=== PATIENT | female | born 2005 | race Caucasian/White ===

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

== ENCOUNTER 2025-05-22 18:46 | Emergency (ER) | payer MEDICAID, SELFPAY ==
--- NOTE | 2025-05-22 18:48 | XRR_ITS ---
PROCEDURE INFORMATION: Exam: XR Chest Exam date and time: 05/22/2025 7:02 PM Age: 20 years old Clinical indication: Shortness of breath; Additional info: SOB TECHNIQUE: Imaging protocol: Radiologic exam of the chest. Views: 1 view. COMPARISON: CT abdomen pelvis w con* [id number] 08/05/2023 8:24 AM FINDINGS: Lungs: Unremarkable. No consolidation. Pleural spaces: Unremarkable. No pleural effusion. No pneumothorax. Heart/Mediastinum: Unremarkable. No cardiomegaly. Bones/joints: Unremarkable. XR/XR chest 1V portable [id number] IMPRESSION: No acute findings.
--- NOTE | 2025-05-22 18:48 | ECG_ITS ---
[facility] 2025-05[facility]22 Pat Name: Maeve Ceja Department: Room: Gender: Female Knot Picker Cloth: : 2005 Requested By: Melany Farr Order Number: [id number] Mackenzie MD: Evan Hammond M.D. Measurements Intervals [place] Rate: 79 P: 63 FL: 154 QRS: 30 QRSD: 90 T: 42 QT: 364 QTc: 420 Interpretive Statements SINUS RHYTHM NONSPECIFIC T-WAVE ABNORMALITY No previous ECG available for comparison Electronically Signed On 05-23-2025 17:24:59 FASHION MERCHANDISER by Evan Hammond M.D. [email or web address]
[2025-05-22 18:54] VITALS: BP 138/89; PULSE 90; RESP 16; TEMP 36.6; O2SAT 100; BMI 20.5
--- OUTSIDE RECORDS SUMMARY | 2025-05-22 18:56 | XMS_ITS | Encounter Summary ---
Author Organization [facility] Address [address] [place] [address] Care Team Providers Care Budget Assistant Name Role Phone Phong Cui MD Primary Care Provider [phone] Encounter Details Date Type Department Care Team (Latest Contact Info) Description 03/22/2025 Results Follow-Up [facility] Family Medicine [address] [address] Monet Kidd, [facility] [address] [address] POC RAPID STREP A ANTIGEN, POC INFLUENZA A/B AND COVID-19 ANTIGENS, MONONUCLEOSIS SCREEN, Additional followed-up results: 6 Social History Tobacco Use Types Packs/Day Years Used Date Smoking Tobacco: Never Passive Smoke Exposure: Yes Smokeless Tobacco: Never Alcohol Use Standard Drinks/Week Comments No 0 (1 standard drink = 0.6 oz pur e alcohol) Feeling Safe Answer Date Recorded Are you in a relationship wi th someone who hurts you emotionally and/or physically? No 12/13/2024 Comments No Sex and Gender Information Value Date Recorded Sex Assigned at Not on file Legal Sex Female 11:25 AM ENVIRONMENTAL ENGINEER Gender Identity Not on file Sexual Orientation Not on file documented as of this encounter Plan of Treatment Upcoming Encounters Date Type Department Care Team (Late st Contact Info) Description 11/19/2025 2:10 PM CDT Office Visit [facility] [address] [place] [address] Gloria Cruz PA [address] [place] [id number] 12/26/2025 2:30 PM CDT Office Visit [facility] [address] [address] [place] [address] Myah Samuel, TELETYPESETTER [address] [place] [address] 2026 3:00 PM CDT Office Visit [facility] [address] [place] [address] Los Del Rio MD [address] [place] [address] Meseret Curry FNP [address] [place] [address] documented as of this encounter Visit Diagnoses Not on filedocumented in this encounter Additional Health Concerns Assessment Noted Time PHQ-9 Depression Total Score: 1 07/25/19 25 4:15 PM ENVIRONMENTAL ENGINEER documented as of this encounter Care Teams Budget Assistant Relationship Specialty Start Date End Date Phong Ciu MD [address] [address] PCP - General Family Practice 06/08/17 documented as of this encounter
--- OUTSIDE RECORDS SUMMARY | 2025-05-22 18:56 | XMS_ITS | Clinical Summary ---
[facility] Organization [facility] Address [address] [place]o: [place] [address] Care Team Providers Care Residence Hall Director Name Role Phone Phong Cui MD Primary Care Provider [phone] Allergies Active Allergy Reactions Criticality Noted Date Comments Alpha-Gal (Qzzdunxgw-Pgnup-3,3-Galactose) Angioedema High 08/31/2023 Azithromycin Rash Low 07/09/2012 Gelatin Capsules (Empty) Unknown 06/28/2024 Milk Itching Low 09/05/2024 Shellfish Containing Products Itching Low 2024 Medications diazePAM (VALIUM) 5 mg tablet Take 5 mg by mouth Continuous as needed for Anxiety. Active albuterol sulfate HFA 90 mcg/actuation aerosol inhalerIndicatio ns:Upper respiratory tract infection, unspecified type Take 2 Puffs by inhalation every 6 hours as needed for Shortness of Breath. 8.5 Gram 1 024 Active cetirizine (ZyrTEC) 10 mg tabletIndication s:Post-nasal drainage Take 1 Tablet (10 mg) by mouth daily. 90 Tablet 024 Active Norethindrn A-E estradiol-Iron (Junel 24) 1 mg-20 mcg (24)/75 mg (4) tabletIndication s:Encounter for counseling regarding contraception Take 1 Tablet by mouth daily. 28 Tablet Active Additional Information Patient not taking.Reported on 05/03/2025 EPINEPHrine (EPIPEN) 0.3 mg/0.3 mL Auto-InjectorInd ications:Allergy to alpha-gal Inject 0.3 mL (0.3 mg) by intramuscular injection 1 time daily as needed for Anaphylaxis. 1 Each 1 Active predniSONE (DELTASONE) 5 mg tablet 50 mg x 2 days 40 mg x 2 days 30 mg x 2 days 20 mg x 2 days 10 mg x 2 days 5 mg x 2 days 62 Tablet 025 Active Additional Information Patient not taking.Reported on 05/03/2025 azelastine (ASTELIN) 137 mcg/actuation nasal sprayIndications :Allergy to alpha-gal,Chroni c rhinitis Administer 2 Sprays in each nostril 2 times daily. 30 mL 1 025 Active montelukast (Singulair) 10 mg tabletIndication s:Allergy to alpha-gal,Chroni c rhinitis Take 1 Tablet (10 mg) by mouth daily at bedtime. 30 Tablet 1 025 Active oxyBUTYnin (DITROPAN XL) 10 mg Extended Release 24 hour tablet Take 1 Tablet (10 mg) by mouth daily. 90 Tablet 3 025 Active hydrOXYzine HCL (ATARAX) 10 mg tablet Take 2 Tablets (20 mg) by mouth daily at bedtime. 60 Tablet 11 025 Active EluRyng 0.12-0.015 mg/24 hr Ring INSERT 1 RING VAGINALLY ONCE A MONTH 025 Active loratadine (CLARITIN) 10 mg tabletIndication s:Allergy to alpha-gal,Chroni c rhinitis Take 1 Tablet (10 mg) by mouth daily. 100 Tablet 2 025 Active famotidine (PEPCID) 40 mg tabletIndication s:Allergy to alpha-gal Take 1 tablet by mouth twice daily 200 Tablet 2 025 Active Zafemy 150-35 mcg/24 hr Patch Weekly PATCH APPLY 1 PATCH TOPICALLY ONCE A WEEK FOR 3 WEEKS OF A 4-WEEK CYCLE Active cyclobenzaprine (FLEXERIL) 5 mg TabletIndication s:Chronic neck pain Take 1 Tablet (5 mg) by mouth 3 times daily as needed for Spasm. 30 Tablet 1 025 Active ferrous sulfate 325 mg (65 mg iron) tabletIndication s:Iron deficiency anemia secondary to inadequate dietary iron intake Take 1 Tablet (325 mg) by mouth daily. 90 Tablet 3 025 Active ferrous sulfate 325 mg (65 mg iron) tablet Take 325 mg by mouth every other day. 2024 Discontinued Active Problems Problem Noted Date Diagnosed Date Interstitial cystitis 05/09/2025 Dysautonomia 03/20/2025 Orthostatic hypotension 01/09/2025 Alpha-gal syndrome 01/09/2025 Environmental tobacco smoke exposure 07/07/2015 Psoriasis 02/21/2014 Encounters Date Type Department Care Team Description 05/06/2025 Results Follow-Up [address] [phone] PatriciaDiamond, CONTACT CENTER ASSOCIATE IRON, TIBC, AND PERCENT SATURATION, VITAMIN B12 LEVEL, VITAMIN D 25 HYDROXY, XR CERVICAL SPINE 2 OR 3 VIEWS 05/03/2025 1:56 PM SPEECH PROFESSOR - 05/03/2025 11:59 PM SPEECH PROFESSOR Hospital Encounter [facility] [address] [address] PatriciaDiamond, CONTACT CENTER ASSOCIATE Discharge Disposition: Home or Self Care 05/03/2025 11:40 AM SPEECH PROFESSOR Office Visit [address] [phone] PatriciaDiamond, CONTACT CENTER ASSOCIATE Chronic neck pain (Primary Dx); Post-nasal drainage; Allergy to alpha-gal; Other fatigue; Vitamin D deficiency; Allergic reaction, sequela; Food allergy 04/30/2025 External Device Data ST[facility] ABSTRACTION Provider, Abstract 04/24/2025 External Device Data [facility] ABSTRACTION Provider, Abstract 04/24/2025 External Device Data [facility] ABSTRACTION Provider, Abstract 04/17/2025 External Device Data [place] ABSTRACTION Provider, Abstract 04/16/2025 External Device Data [place] ABSTRACTION Provider, Abstract 03/25/[address] [phone] Monet Kidd FNP Allergy to alpha-gal 03/22/2025 Results Follow-Up [address] [address] Monet Kidd FNP POC RAPID STREP A ANTIGEN, POC INFLUENZA A/B AND COVID-19 ANTIGENS, MONONUCLEOSIS SCREEN, Additional followed-up results: 6 03/21/[address] [place] [address] Phong Cui MD Results 03/21/[address] [place] [address] Phong Cui MD Patient Communication 03/20/2025 9:40 AM CDT Office Visit [address] [place] [address] Monet Kidd FNP Allergy to alpha-gal (Primary Dx); Food allergy; Dysautonomia (CMS/HCC); Myalgia; Other fatigue; Sore throat; Fever, unspecified fever cause; Viral upper respiratory tract infection 03/13/2025 External Device Data STL ABSTRACTION Provider, Abstract 03/12/2025 External Device Data ST[place] ABSTRACTION Provider, Abstract 02/27/[address] [address] Monet Kidd FNP Allergy to alpha-gal; Chronic rhinitis 02/27/[address] [place] [address] Monet Kidd FNP Allergy to alpha-gal; Chronic rhinitis 02/26/2025 External Device Data STL ABSTRACTION Provider, Abstract from Last 3 Months Family History Medical History Relation Name Comments Healthy Father Kidney Disease Maternal Grandmother Healthy Mother Lung Cancer Paternal Grandfather Relation Name Status Comments Father Alive Maternal Grandmother Mother Alive Paternal Grandfather Social History Tobacco Use Types Packs/Day Years Used Date Smoking Tobacco: Never Passive Smoke Exposure: Yes Smokeless Tobacco: Never Tobacco Cessation:Counseling Given: No Alcohol Use Standard Drinks/Week Comments No 0 (1 standard drink = 0.6 oz pur e alcohol) Feeling Safe Answer Date Recorded Are you in a relationship wi th someone who hurts you emotionally and/or physically? No 12/13/2024 Comments No Sex and Gender Information Value Date Recorded Sex Assigned at Not on file Legal Sex Female 11:25 AM SPEECH PROFESSOR Gender Identity Not on file Sexual Orientation Not on file Last Filed Vital Signs Vital Sign Reading Time Taken Comments Blood Pressure 102/70 05/03/2025 11:43 AM SPEECH PROFESSOR Pulse 86 05/03/2025 11:43 AM SPEECH PROFESSOR Temperature 36.7 C (98 F) 05/03/2025 11:43 AM SPEECH PROFESSOR Respiratory Rate 18 05/03/2025 11:43 AM SPEECH PROFESSOR Oxygen Saturation 100% 05/03/2025 11:43 AM SPEECH PROFESSOR Inhaled Oxygen Concentration - - Weight 51.5 kg (113 lb 9.6 oz) 05/03/2025 11:43 AM SPEECH PROFESSOR Height 160 cm (5' 3 ) 05/03/2025 11:43 AM SPEECH PROFESSOR Body Mass Index 20.12 05/03/2025 11:43 AM SPEECH PROFESSOR Plan of Treatment Upcoming Encounters Date Type Department Care Team (Late st Contact Info) Description 11/19/2025 2:10 PM CDT Office Visit [facility] [address] [place] [phone] Gloria Cruz PA [address] [place] [address] 12/26/2025 2:30 PM CDT Office Visit [facility] [place] [address] [place] [address] Myah Samuel FNP [address] [place] [address] 2026 3:00 PM CDT Office Visit [facility] [address] [place] [address] [place] MD [address] [place] [address] Meseret Curry, CONTACT CENTER ASSOCIATE [address] [place] [address] Health Maintenance Due Date Last Done Comments HPV VACCINES (1 - 3-dose series) 02/12/2020 DTAP/TDAP/TD VACCINES (1 - Tdap) 02/12/2024 HEPATITIS B VACCINES (1 of 3 - 19+ 3-dose series) 02/12/2024 Preventative Visit-Managed Medicaid 02/12/2024 CHLAMYDIA SCREENING (ANNUAL) 11-24 YEARS 11/10/2024 11/11/2023, 08/02/2023 INFLUENZA VACCINE (#1) 2025 05/15/2024, 2022 Procedures Procedure Name Priority Date/Time Associated Diagnosis Comments XR CERVICAL SPINE 2 OR 3 VIEWS Routine 05/03/2025 2:15 PM SPEECH PROFESSOR Chronic neck pain VITAMIN D 25 HYDROXY Routine 05/03/2025 12:05 PM SPEECH PROFESSOR Post-nasal drainage Chronic neck pain Allergy to alpha-gal Other fatigue Vitamin D deficiency VITAMIN B12 LEVEL Routine 05/03/2025 12: 05 PM SPEECH PROFESSOR Post-nasal drainage Allergy to alpha-gal Other fatigue IRON, TIBC, AND PERCENT SATURATION Routine 05/03/2025 12:05 PM SPEECH PROFESSOR Post-nasal drainage Allergy to alpha-gal Other fatigue POC RAPID STREP A ANTIGEN Routine 03/20/2025 10:09 AM CDT Sore throat Fever, unspecified fever cause POC INFLUENZA A/B AND COVID-19 ANTIGENS Routine 03/20/2025 10:08 AM CDT Sore throat Fever, unspecified fever cause VITAMIN D 25 HYDROXY Routine 03/20/2025 9:53 AM CDT Myalgia Other fatigue IRON, TIBC, AND PERCENT SATURATION Routine 03/20/2025 9:53 AM CDT Myalgia Other fatigue MAGNESIUM LEVEL Routine 03/20/2025 9:53 AM CDT Myalgia COMPREHENSIVE METABOLIC PANEL Routine 03/20/2025 9:53 AM CDT Myalgia CBC WITH DIFFERENTIAL Routine 03/20/2025 9:53 AM CDT Myalgia Other fatigue ALLERGEN COCONUT, IGE Routine 03/20/2025 9:53 AM CDT Food allergy MONONUCLEOSIS SCREEN Routine 03/20/2025 9:53 AM CDT Sore throat Fever, unspecified fever cause VAGINOSIS/VAGINITIS PANEL PLUS Routine 11/11/2023 1:15 PM CDT Dysuria Vaginal discharge from Last 3 Months or Most Recently Relevant to Health Maintenance Results * XR CERVICAL SPINE 2 OR 3 VIEWS (05/03/2025 2:15 PM SPEECH PROFESSOR) Anatomical Region Laterality Modality Spine Computed Radiogr aphy 05/03/2025 2:15 PM SPEECH PROFESSOR Impressions 05/05/2025 9:29 AM SPEECH PROFESSOR IMPRESSION: See below. Exam: XR CERVICAL SPINE 2 OR 3 VIEWS Date/Time of Exam: 05/03/2025 2:15 PM Reason For Exam: See Diagnosis. Diagnosis: Chronic neck pain; Chronic neck pain. Findings: Mild reversal of cervical lordosis. Otherwise unremarkable exam. No fracture, bone lesion, or significant degenerative changes. Narrative Procedure Note Jake Gonzalez MD - 05/05/2025 IMPRESSION: See below. Exam: XR CERVICAL SPINE 2 OR 3 VIEWS Date/Time of Exam: 05/03/2025 2:15 PM Reason For Exam: See Diagnosis. Diagnosis: Chronic neck pain; Chronic neck pain. Findings: Mild reversal of cervical lordosis. Otherwise unremarkable exam. No fracture, bone lesion, or significant degenerative changes. [facility] DIAGNOSTIC IMAGING ORDER NALINI Final Result * (ABNORMAL) IRON, TIBC, AND PERCENT SATURATION (05/03/2025 12:05 PM SPEECH PROFESSOR) Only the most recent of2 resultswithin the time period is included. IRON 25(L) 40 - 190 mcg/dL [facility] TIBC 516(H) 250 - 450 mcg/dL (calc) [facility] IRON % SATURATION 5(L) 16 - 45 % (calc) [facility] Comment: Test Performed at: [facility] [address] [place] [address] Dilip Willson MD Blood 05/03/2025 12:0 5 PM SPEECH PROFESSOR 05/04/2025 3:34 AM SPEECH PROFESSOR Result [facility] CHEMISTRY ORDERABLES Fin al Result [facility] [phone] [facility] [address] [place] [address] * (ABNORMAL) VITAMIN D 25 HYDROXY (05/03/2025 12:05 PM SPEECH PROFESSOR) Only the most recent of2 resultswithin the time period is included. VITAMIN D, 25 OH, TOTAL 20(L) 30 - 100 ng/mL [facility] Comment: Vitamin D Status 25-OH Vitamin D: Deficiency: <20 ng/mL Insufficiency: 20 - 29 ng/mL Optimal: > or = 30 ng/mL For 25-OH Vitamin D testing on patients on D2-supplementation and patients for whom quantitation of D2 and D3 fractions is required, the [facility] 25-OH VIT D, (D2,D3), LC/MS/MS is recommended: order code [id number] (patients >2yrs). See Note 1 Note 1 For additional information, please refer to http://education.[employer]/faq/YBN448 (This link is being provided for informational/ educational purposes only.) Test Performed at: [email or web address] [address] [place] [address] Dilip Willson MD Blood 05/03/2025 12:0 5 PM SPEECH PROFESSOR 05/04/2025 3:34 AM SPEECH PROFESSOR Diamond Lacey BAGLEYP CHEMISTRY ORDERABLES Fin al Result Performing Organization Address City/[facility] de Phone Number [facility] [phone] [address] * VITAMIN B12 LEVEL (05/03/2025 12:05 PM SPEECH PROFESSOR) Pathologist [facility] VITAMIN B12 433 200 - 1100 pg/mL [facility] Comment: Test Performed at: [facility] [address] Dilip Willson MD Blood 05/03/2025 12:0 5 PM SPEECH PROFESSOR 05/04/2025 3:34 AM SPEECH PROFESSOR Diamond BAGLEYP CHEMISTRY ORDERABLES Fin al Result Performing Organization Address [facility] de Phone Number [facility] [phone] [address] * POC RAPID STREP A ANTIGEN (03/20/2025 10:09 AM CDT) RAPID STREP POC Negative Negative, Indeterminate [facility] INTERNAL KIT QC POC Pass Pass [facility] VIEW KIT LOT NUMBER POC [id number] [facility] KIT EXP DATE POC 10/20/2025 [facility] VIEW READ METHOD POC Visual [facility] Upper Respiratory SPECIMEN FROM THROAT / Unknown 03/20/2025 10:09 AM CDT Monet Kidd CONTACT CENTER ASSOCIATE POINT OF CARE TESTING Fi nal Result Performing Organization Address [facility] Co de Phone Number [facility] CLIA# [id number] [address] [facility] [address] [place] [address] * POC INFLUENZA A/B AND COVID-19 ANTIGENS (03/20/2025 10:08 AM CDT) INFLUENZA A AG POC Not Detected Not Detected [facility] INFLUENZA B AG POC Not Detected Not Detected [facility] COVID-19 ANTIGEN POC Presumptively Negative Presumptively Negative [facility] INTERNAL KIT QC POC Pass Pass [facility] KIT LOT NUMBER POC [id number] [facility] KIT EXP DATE POC 10/09/2025 [facility] Upper Respiratory 03/20/2025 10:08 AM CDT Monet Kidd CONTACT CENTER ASSOCIATE POINT OF CARE TESTING Fi nal Result Performing Organization Address [facility] Co de Phone Number [facility] CLIA# [id number] [address] [facility] [address] [facility] [address] [place] [address] * ALLERGEN COCONUT, IGE (03/20/2025 9:53 AM CDT) ALLERGEN COCONUT <0.10 kU/L [facility] ALLERGEN ALLERGEN COCONUT CLASS 0 [facility] ALLERGY PANEL INTERP [facility] Comment: Specific Level of Allergen IGE Class kU/L Specific IGE Antibody ----- --------- 0 <0.10 Absent/Undetectable 0/1 0.10-0.34 Very Low Level 1 0.35-0.69 Low Level 2 0.70-3.49 Moderate Level 3 3.50-17.4 High Level 4 17.5-49.9 Very High Level 5 50-100 Very High Level 6 >100 Very High Level The clinical relevance of allergen results of 0.10-0.34 kU/L are undetermined and intended for specialist use. Allergens denoted with a include results using one or more analyte specific reagents. In those cases, the test was developed and its analytical performance characteristics have been determined by [facility]. It has not been cleared or approved by the U.S. Food and Drug Administration. This assay has been validated pursuant to the CLIA regulations and is used for clinical purposes. Test Performed at: [facility] [address] [place] [address] Dilip Willson MD Blood 03/20/2025 9:53 AM CDT 03/21/2025 6:40 AM CDT Monet Kidd CONTACT CENTER ASSOCIATE CHEMISTRY ORDERABLES Fin al Result [facility] [phone] [facility] [address] [place] [address] * (ABNORMAL) CBC WITH DIFFERENTIAL (03/20/2025 9:53 AM CDT) WBC 4.7 3.8 - 10.8 Thousand/u L [facility] RBC 4.05 3.80 - 5.10 Million/uL [facility] HEMOGLOBIN 11.6(L) 11.7 - 15.5 g/dL [facility] HEMATOCRIT 38.1 35.0 - 45.0 % [facility] MCV 94.1 80.0 - 100.0 fL [facility] MCH 28.6 27.0 - 33.0 pg [facility] MCHC 30.4(L) 32.0 - 36.0 g/dL [facility] Comment: For adults, a slight decrease in the calculated MCHC value (in the range of 30 to 32 g/dL) is most likely not clinically significant; however, it should be interpreted with caution in correlation with other red cell parameters and the patient's clinical condition. RDW 13.1 11.0 - 15.0 % [facility] PLATELETS 299 140 - 400 Thousand/u L [facility] MPV 12.0 7.5 - 12.5 fL [facility] NEUTROPHIL ABSOLUTE 2,397 1,500 - 7,800 cells/uL [facility] LYMPHOCYTE ABSOLUTE 1,716 850 - 3,900 cells/uL [facility] MONOCYTE ABSOLUTE 381 200 - 950 cells/uL [facility] EOSINOPHIL ABSOLUTE 179 15 - 500 cells/uL [facility] BASOPHILS ABSOLUTE 28 0 - 200 cells/uL [facility] NEUTROPHIL 51 % [facility] LYMPHOCYTES 36.5 % [facility] MONOCYTE 8.1 % [facility] EOSINOPHILS 3.8 % [facility] BASOPHILS 0.6 % [facility] Comment: Test Performed at: [facility] [address] [place] [address] Dilip Willson MD Blood 03/20/2025 9:53 AM CDT 03/21/2025 6:40 AM CDT Monet BAGLEYP HEMATOLOGY ORDERABLES Fi nal Result Performing Organization Address City/[facility]/ZIP Co de Phone Number [facility] [phone] [facility] [address] [place] [address] * (ABNORMAL) MONONUCLEOSIS SCREEN (03/20/2025 9:53 AM CDT) MONONUCLEOSIS SCREEN POSITIVE( A) NEGATIVE [facility] Comment: Test Performed at: [facility] [address] [place] [phone] Dilip Willson MD Blood 03/20/2025 9:53 AM CDT 03/21/2025 6:40 AM CDT Monet Kidd [facility] HEMATOLOGY ORDERABLES Fi nal Result [facility] [phone] [facility] [address] [place] [address] * MAGNESIUM LEVEL (03/20/2025 9:53 AM CDT) [facility] MAGNESIUM 2.0 1.5 - 2.5 mg/dL [facility] Comment: Test Performed at: [facility] [address] [place] [address] Dilip Willson MD Blood 03/20/2025 9:53 AM CDT 03/21/2025 6:40 AM CDT Monet Kidd CONTACT CENTER ASSOCIATE CHEMISTRY ORDERABLES Fin al Result [facility] [phone] [facility] [address] * COMPREHENSIVE METABOLIC PANEL (03/20/2025 9:53 AM CDT) [facility] GLUCOSE 81 65 - 99 mg/dL [facility] Comment: Fasting reference interval BUN 12 7 - 25 mg/dL [facility] CREATININE 0.62 0.50 - 0.96 mg/dL [facility] GFR 131 > OR = 60 mL/min/1. 73m2 [facility] BUN/CREAT RATIO SEE NOTE: 6 22 (calc) [facility] Comment: Not Reported: BUN and Creatinine are within reference range. SODIUM 138 135 - 146 mmol/L [facility] POTASSIUM 4.0 3.5 - 5.3 mmol/L [facility] CHLORIDE 105 98 - 110 mmol/L [facility] CO2 26 20 - 32 mmol/L [facility] CALCIUM 9.8 8.6 - 10.2 mg/dL [facility] TOTAL PROTEIN 7.0 6.1 - 8.1 g/dL [facility] ALBUMIN 4.5 3.6 - 5.1 g/dL [facility] GLOBULIN 2.5 1.9 - 3.7 g/dL (calc) [facility] ALBUMIN/GLOBULIN RATIO 1.8 1.0 - 2.5 (calc) [facility] BILIRUBIN TOTAL 0.6 0.2 - 1.2 mg/dL [facility] ALKALINE PHOSPHATASE 55 31 - 125 U/L [facility] AST 22 10 - 30 U/L [facility] ALT 11 6 - 29 U/L [facility] Comment: Test Performed at: [email or web address] [address] [facility] [place] [address] Dilip Willson MD Blood 03/20/2025 9:53 AM CDT 03/21/2025 6:40 AM CDT Monet Kidd CONTACT CENTER ASSOCIATE CHEMISTRY ORDERABLES Fin al Result [facility] [phone] [facility] [address] [place] [address] * (ABNORMAL) VAGINOSIS/VAGINITIS PANEL PLUS (11/11/2023 1:15 PM CDT) [facility] BACTERIAL VAGINOSIS POSITIVE(A) NEGATIVE [facility] [place] ANTOINETTE SPECIES DETECTED(A) NOT DETECTED [facility] [place] ANTOINETTE GLABRATA NOT DETECTED NOT DETECTED [facility] [place] Comment: Antoinette species C. albicans, C. tropicalis, C. parapsilosis, and/or C. dubliniensis can be detected, but not differentiated, in the Antoinette spp. result. TRICHOMONAS VAGINALIS (TV), TMA NOT DETECTED NOT DETECTED [facility] [place] C TRAC RNA NOT DETECTED NOT DETECTED [facility] [place] N.GONORRHOEAE RNA, TMA NOT DETECTED NOT DETECTED [facility] [place] Comment: For additional information, please refer to https://education.[employer]/faq/DGP321 (This link is being provided for information/ educational purposes only.) Test Performed at: [email or web address] [address] [facility] [place] [address] Dilip Willson MD Genital SPECIMEN FROM VAGINA / Unknown 11/11/2023 1:15 PM CDT 11/12/2023 3:47 AM CDT Monet Tucker Marti CONTACT CENTER ASSOCIATE MICROBIOLOGY - GENERAL O RDERABLES Final Result Performing Organization Address City/State/[facility] Co de Phone Number [facility] [phone] [facility] [address] [place] [address] from Last 3 Months or Most Recently Relevant to Health Maintenance Insurance Care Teams Residence Hall Director Relationship Specialty Start Date End Date Phong Cui MD [address] [place] [phone] PCP - General Family Practice 06/08/17
--- NOTE | 2025-05-22 19:01 | W.ED.CHESTPA ---
HPI - Chest Pain General: Chief Complaint: Chest Pain Stated Complaint: chest is tight. hard to breathe, chilling/ flashes Time Seen by Provider: 05/22/25 18:55 Source: patient Mode of arrival: ambulatory Limitations: no limitations History of Present Illness: 20-year-old female states 45 minutes ago she started feeling tightness in her chest states she is having some shortness of breath. Said she is also having a mild headache along with tingling all over. Patient denies any worse or improving factors no history of any heart or lung disease denies any recent long travels. She denies any vomiting or diarrhea. Related Data Home Medications ?Medication ?Instructions ?Recorded ?Confirmed triamcinolone acetonide 0.5 % 1 applic topical DAILY 04/25/23 05/06/25 topical cream cetirizine 10 mg tablet (Zyrtec) 10 mg PO DAILY 07/20/24 05/06/25 hydroxyzine HCl 10 mg tablet 10 mg PO DAILY 07/20/24 05/06/25 epinephrine 0.3 mg/0.3 mL See Rx Instructions .Route .COMPLEX 11/15/24 05/06/25 injection, auto-injector famotidine 20 mg tablet 20 mg PO BID 11/15/24 05/06/25 oxybutynin chloride 5 mg 10 mg PO DAILY 01/02/25 05/06/25 tablet,extended release 24 hr azelastine 137 mcg (0.1 %) nasal 2 spray intranasal BID 04/02/25 05/06/25 spray montelukast 10 mg tablet 10 mg PO DAILY 04/02/25 05/06/25 Previous Rx's ?Medication ?Instructions ?Recorded diazepam 5 mg tablet (Valium) 5 mg PO DAILY PRN severe anxiety 07/20/24 #30 tabs norelgestromin 150 mcg-e.estradiol 1 patch transdermal Q7D #12 ea 04/25/25 35 mcg/24 hr weekly transderm patch (Xulane) Allergies Allergy/AdvReac Type Severity Reaction Status Date / Time Milk Containing Products Allergy Severe ALGY-Anaphy Verified 05/06/25 10:28 (Dairy) laxis shellfish derived Allergy Unknown Unknown Verified 05/06/25 10:28 Alpha-Gal Allergy ALGY-Difficulty Verified 05/06/25 10:28 (Dcporeqjp-Rhrzv-7,3-Gala Breathing azithromycin (From Zithromax) AdvReac Mild hives Verified 05/06/25 10:28 PFSH ED PFSH: Medical History Dysautonomia Suspected POTS but still undergoing testing Major depressive disorder, recurrent, mild Panic disorder Interstitial cystitis (~02/2024) Yessenia in [place]-- Myah Singhett PTSD (post-traumatic stress disorder) Psychiatric care No pertinent past medical history neghx: htn,dm,thryoid,dvt/pe PCP: Stevie Kidd Mild asthma Depression with anxiety MRSA (methicillin resistant staph aureus) culture positive Papular eczema Surgical History H/O cystoscopy Family History Grandfather Stroke Maternal Denies family history of Colon cancer Ovarian cancer Diabetes CAD (coronary artery disease) Heart disease Chronic kidney disease (CKD) Breast cancer Family history of thyroid problem Lung disease Cancer Hypertension Uterine cancer Hyperchloremia Social History Smoking and tobacco/nicotine status: never used tobacco/nicotine Physical Exam Const: COMMON NORMALS: no acute distress, patient oriented x3 and healthy appearing HENMT: COMMON NORMALS: normocephalic and atraumatic HEAD & SCALP: normocephalic and atraumatic Eye: COMMON NORMALS: conjunctivae normal CONJUNCTIVA: Yes conjunctivae normal Neck/C-Spine: COMMON NORMALS: full ROM and supple Chest: COMMONS NORMALS: normal inspection of the chest Resp: COMMON NORMALS: normal respiratory effort, No retractions, No use of accessory muscles and clear to auscultation bilaterally AUSCULTATION: clear to auscultation bilaterally Cardio: COMMON NORMALS: regular rate, regular rhythm and No murmurs present (Cardio) RATE: regular rate RHYTHM: regular rhythm Extremity: COMMON NORMALS: normal to inspection and full ROM Neuro: COMMON NORMALS: patient oriented x3, moves all extremities and no focal motor deficits Psych: COMMON NORMALS: mental status grossly normal, Normal thought process present and cooperative THOUGHT PROCESS: Normal thought process present Skin: COMMON NORMALS: no rashes or lesions noted and no wounds GENERAL SKIN EXAM: no rashes or lesions noted Course Vital Signs: Vital signs: Vital Signs Temperature 97.9 F 05/22/25 18:54 Pulse Rate 83 05/22/25 19:05 Respiratory Rate 16 05/22/25 19:05 Blood Pressure 111/74 05/22/25 19:38 Pulse Oximetry 100 05/22/25 19:38 Oxygen Delivery Me thod Room Air 05/22/25 18:54 MDM - Chest Pain Medical Decision Making Patient presents for chest pains are atypical in nature differential includes arrhythmia, pulmonary emboli, pneumothorax. Her EKG here was interpreted by me showed normal sinus rhythm heart rate [address] elevation QRS 90 QTc 399. Chest x-ray here was inter by me showed no acute abnormality. Patient has no signs of pulmonary emboli here D-dimer was negative no signs of pneumothorax. Patient has no risk factors for ACS and her pain is resolved here no signs of acute coronary syndrome. Is likely stress or anxiety reduced. She is well-appearing here did go over all her findings with her she is stable for discharge she has follow-up with PCP and return if worsening. Medical Records I reviewed the patient's medical records. Lab Data I reviewed the patient's lab results. 05/22/25 19:05 05/22/25 19:05 Radiology Impressions Chest X-Ray 05/22/25 18:48 IMPRESSION: No acute findings. Laboratory Results WBC 8.38 10^3/uL (4.5-13.0) 05/22/25 19:05 RBC 4.19 10^6/uL (3.85-5.65) 05/22/25 19:05 Hgb 11.70 g/dL (12.4-14.8) L 05/22/25 19:05 Hct 36.3 % (36-47) 05/22/25 19:05 MCV 86.6 fl (85-98) 05/22/25 19:05 MCH 27.9 pg (27-33) 05/22/25 19:05 MCHC 32.2 g/dL (30-55) 05/22/25 19:05 RDW 13.0 % (12.1-15.1) 05/22/25 19:05 Plt Count 373 10^3/cmm (157-399) 05/22/25 19:05 MPV 11.0 fL (7.4-10.4) H 05/22/25 19:05 Neut % (Auto) 60.7 % 05/22/25 19:05 Lymph % (Auto) 28.6 % 05/22/25 19:05 [place] % (Auto) 6.1 % 05/22/25 19:05 Eos % (Auto) 3.8 % 05/22/25 19:05 Baso % (Auto) 0.6 % 05/22/25 19:05 Neut # (Auto) 5.08 10^3/uL (1.8-8.0) 05/22/25 19:05 Lymph # (Auto) 2.4 10^3/uL (1.5-6.5) 05/22/25 19:05 [place] # (Auto) 0.5 10^3/uL (0.2-0.9) 05/22/25 19:05 Eos # (Auto) 0.3 10^3/uL (0.0-0.8) 05/22/25 19:05 Baso # (Auto) 0.1 10^3/uL (0.0-0.1) 05/22/25 19:05 Nucleated RBC % (auto) 0 % 05/22/25 19:05 Nucleated RBCs # 0.0 /100WBC 05/22/25 19:05 D-Dimer 0.32 ug/mLFEU (0-0.59) 05/22/25 19:05 Sodium 138 mmol/L (136-145) 05/22/25 19:05 Potassium 3.5 mmol/L (3.5-5.1) 05/22/25 19:05 Chloride 101 mmol/L (98-107) 05/22/25 19:05 Carbon Dioxide 23 mmol/L (22-29) 05/22/25 19:05 Anion Gap 17.5 (5-19) 05/22/25 19:05 BUN 7 mg/dL (6-20) 05/22/25 19:05 Creatinine 0.6 mg/dL (0.5-0.9) 05/22/25 19:05 GFR Calculation 127.5 mL/min (90-130) 05/22/25 19:05 Glucose 90 mg/dL (65-115) 05/22/25 19:05 Calculated Osmolality 284 mOsm/kg (285-295) L 05/22/25 19:05 Calcium 9.6 mg/dL (8.5-10.5) 05/22/25 19:05 Total Bilirubin 0.2 mg/dL (0.15-1.2) 05/22/25 19:05 AST 24 U/L (0-32) 05/22/25 19:05 ALT 12 U/L (0-33) 05/22/25 19:05 Alkaline Phosphatase 70 U/L (35-105) 05/22/25 19:05 Total Protein 8.6 g/dL (6.6-8.7) 05/22/25 19:05 Albumin 4.6 g/dL (3.5-5.2) 05/22/25 19:05 Globulin 4.0 g/dL (1.3-4.6) 05/22/25 19:05 HCG, Qual Negative (Negative) 05/22/25 19:05 All radiology interpretation(s) finalized by discharge EKG Data EKG 1: I personally reviewed and interpreted this EKG as follows: EKG interpretation date: 05/22/25 EKG interpretation time: 18:59 Interpretation: nsr hr [address] elevation qrs 90 qtc 399 Discharge Plan Discharge Patient Disposition: Home Clinical Impression: Atypical chest pain Condition: Stable Prescriptions: No Action triamcinolone acetonide 0.5 % cream 1 applic topical DAILY montelukast 10 mg tablet 10 mg PO DAILY azelastine 137 mcg (0.1 %) spray,non-aerosol 2 spray intranasal BID Rx Instructions: administer into each nostril hydroxyzine HCl 10 mg tablet 10 mg PO DAILY cetirizine [Zyrtec] 10 mg tablet 10 mg PO DAILY diazepam [Valium] 5 mg tablet 5 mg PO DAILY PRN (Reason: severe anxiety) Qty: 30 0RF norelgestromin-ethin.estradiol [Xulane] 150-35 mcg/24 hr patch weekly 1 patch transdermal Q7D Qty: 12 3RF Rx Instructions: apply once weekly for 4 weeks then off for 7 days famotidine 20 mg tablet 20 mg PO BID epinephrine 0.3 mg/0.3 mL auto-injector See Rx Instructions .ROUTE .COMPLEX Rx Instructions: INJECT 0.3ML BY INTRAMUSCULAR INJECTION 1 TIME DAILY NEEDED FOR ANAPHYLAXIS. oxybutynin chloride 5 mg tablet extended release 24hr 10 mg PO DAILY Discharge Orders: Discharge ED (Routine); Ordered 05/22/25 Ordered By: Melany Farr Referrals: Monet Kidd [Primary Care Provider, [facility]] - 4-7 days Discharge Diet: Advance as tolerated Discharge Activity: Resume usual activity Patient Instructions: Chest Pain (ED) Print Language: Frisian Coding Level of Care Code ED Environmental Service Aide for Chg Fwd Heart Score HEART Score Components History: Slightly Suspicous EKG: Normal Age: Less than 45 yrs Risk Factors: No Risk Factors Known Troponin: Baseline Trop <16 ng/L HEART Score RESULT HEART Score: 0 Disposition Recommendations: troponin on patient was not checked as she is young healthy had no signs of ACS here
[2025-05-22 19:05] VITALS: BP 111/86; PULSE 83; RESP 16; O2SAT 100
[2025-05-22 19:16] LABS: Hematocrit 36.3 % (36-47); Hemoglobin 11.70 g/dL (12.4-14.8); Mean Corpuscular HGB Conc 32.2 g/dL (30-55); Mean Corpuscular Hemoglobin 27.9 pg (27-33); Mean Corpuscular Volume 86.6 fl (85-98); Nucleated Red Blood Cells % 0 %; Platelet Count 373 10^3/cmm (157-399); Red Blood Count 4.19 10^6/uL (3.85-5.65); White Blood Count 8.38 10^3/uL (4.5-13.0)
[2025-05-22 19:31] LABS: HCG, Serum Qual Negative (Negative)
[2025-05-22 19:38] VITALS: BP 111/74; O2SAT 100
[2025-05-22 19:46] LABS: Alanine Aminotransferase 12 U/L (0-33); Albumin Level 4.6 g/dL (3.5-5.2); Alkaline Phosphatase 70 U/L (35-105); Anion Gap 17.5 (5-19); Aspartate Amino Transferase 24 U/L (0-32); Blood Urea Nitrogen 7 mg/dL (6-20); Calcium 9.6 mg/dL (8.5-10.5); Carbon Dioxide 23 mmol/L (22-29); Chloride 101 mmol/L (98-107); Globulin 4.0 g/dL (1.3-4.6); Glucose 90 mg/dL (65-115); Osmolality Calculated 284 mOsm/kg (285-295); Potassium 3.5 mmol/L (3.5-5.1); Sodium 138 mmol/L (136-145); Total Protein 8.6 g/dL (6.6-8.7)
[2025-05-22 20:29] LABS: Thyroid Stimulating Hormone 2.37 uIU/mL (0.27-4.20)
== END 2025-05-22 20:16 | disposition home or self-care (01) ==
PROVIDERS: Emergency Provider Emergency Medicine; PCP Registered Nurse
DX: R07.89 Other chest pain (principal)
CPT/HCPCS: 71045; 80053; 84443; 84703; 85025; 85378; 93005; 96374; 99285

== ENCOUNTER 2025-06-17 11:58 | Emergency (ER) | payer MEDICAID, SELFPAY ==
--- OUTSIDE RECORDS SUMMARY | 2025-06-17 12:07 | XMS_ITS | Clinical Summary ---
Author Organization [facility] Address [address] Carcamo: Epic [place] [address] Care Team Providers Care Human Resources Benefits Administrator Name Role Phone Phong Cui MD Primary Care Provider [phone] Allergies Active Allergy Reactions Criticality Noted Date Comments Alpha-Gal ([place]-Ftdnt-1,3-Galactose) Angioedema High 08/31/2023 Azithromycin Rash Low 07/09/2012 Gelatin Capsules (Empty) Unknown 06/28/2024 Milk Itching Low 09/05/2024 Shellfish Containing Products Itching Low 2024 Medications diazePAM (VALIUM) 5 mg tablet Take 5 mg by mouth Continuous as needed for Anxiety. Active albuterol sulfate HFA 90 mcg/actuation aerosol inhalerIndication s:Upper respiratory tract infection, unspecified type Take 2 Puffs by inhalation every 6 hours as needed for Shortness of Breath. 8.5 Gram 1 02/24/20 24 Active cetirizine (ZyrTEC) 10 mg tabletIndications :Post-nasal drainage Take 1 Tablet (10 mg) by mouth daily. 90 Tablet 03/14/20 24 Active Norethindrn A-E estradiol-Iron () 1 mg-20 mcg (24)/75 mg (4) tabletIndications :Encounter for counseling regarding contraception Take 1 Tablet by mouth daily. 28 Tablet 03/14/20 24 Active Additional Information Patient not taking.Reported on 05/03/2025 EPINEPHrine (EPIPEN) 0.3 mg/0.3 mL Auto-InjectorIndi cations:Allergy to alpha-gal Inject 0.3 mL (0.3 mg) by intramuscular injection 1 time daily as needed for Anaphylaxis. 1 Each 1 09/06/19 25 Active predniSONE (DELTASONE) 5 mg tablet 50 mg x 2 days 40 mg x 2 days 30 mg x 2 days 20 mg x 2 days 10 mg x 2 days 5 mg x 2 days 62 Tablet 10/01/19 25 Active Additional Information Patient not taking.Reported on 05/03/2025 azelastine (ASTELIN) 137 mcg/actuation nasal sprayIndications: Allergy to alpha-gal,Chronic rhinitis Administer 2 Sprays in each nostril 2 times daily. 30 mL 1 12/15/19 25 Active montelukast (Singulair) 10 mg tabletIndications :Allergy to alpha-gal,Chronic rhinitis Take 1 Tablet (10 mg) by mouth daily at bedtime. 30 Tablet 1 12/15/19 25 Active oxyBUTYnin (DITROPAN XL) 10 mg Extended Release 24 hour tablet Take 1 Tablet (10 mg) by mouth daily. 90 Tablet 3 12/21/19 25 Active hydrOXYzine HCL (ATARAX) 10 mg tablet Take 2 Tablets (20 mg) by mouth daily at bedtime. 60 Tablet 11 12/21/19 25 Active EluRyng 0.12-0.015 mg/24 hr Ring INSERT 1 RING VAGINALLY ONCE A MONTH 01/03/20 25 Active loratadine (CLARITIN) 10 mg tabletIndications :Allergy to alpha-gal,Chronic rhinitis Take 1 Tablet (10 mg) by mouth daily. 100 Tablet 2 02/29/20 25 Active famotidine (PEPCID) 40 mg tabletIndications :Allergy to alpha-gal Take 1 tablet by mouth twice daily 200 Tablet 2 03/25/20 25 Active Zafemy 150-35 mcg/24 hr Patch Weekly PATCH APPLY 1 PATCH TOPICALLY ONCE A WEEK FOR 3 WEEKS OF A 4-WEEK CYCLE 04/27/20 25 Active cyclobenzaprine (FLEXERIL) 5 mg TabletIndications :Chronic neck pain Take 1 Tablet (5 mg) by mouth 3 times daily as needed for Spasm. 30 Tablet 1 05/03/20 25 Active ferrous sulfate 325 mg (65 mg iron) tabletIndications :Iron deficiency anemia secondary to inadequate dietary iron intake Take 1 Tablet (325 mg) by mouth daily. 90 Tablet 3 05/06/20 Active Active Problems Problem Noted Date Diagnosed Date Interstitial cystitis 05/09/2025 Dysautonomia 03/20/2025 Orthostatic hypotension 01/09/2025 Alpha-gal syndrome 01/09/2025 Environmental tobacco smoke exposure 07/07/2015 Psoriasis 02/21/2014 Encounters Date Type Department Care Team Description 06/11/2025 External Device Data [facility] ABSTRACTION Provider, Abstract 05/28/2025 External Device Data ST[facility] ABSTRACTION Provider, Abstract 05/28/2025 Orders Only [facility] [address] [place] [phone] Provider, Abstract 05/06/2025 Results Follow-Up [address] [phone] PatriciaDiamond, CHIEF CREW SCHEDULER IRON, TIBC, AND PERCENT SATURATION, VITAMIN B12 LEVEL, VITAMIN D 25 HYDROXY, XR CERVICAL SPINE 2 OR 3 VIEWS 05/03/2025 1:56 PM ELECTRIC CUTTER OPERATOR - 05/03/2025 11:59 PM ELECTRIC CUTTER OPERATOR Hospital Encounter [facility] [address] [phone] PatriciaDiamond, CHIEF CREW SCHEDULER Discharge Disposition: Home or Self Care 05/03/2025 11:40 AM ELECTRIC CUTTER OPERATOR Office Visit [address] [phone] PatriciaDiamond, CHIEF CREW SCHEDULER Chronic neck pain (Primary Dx); Post-nasal drainage; Allergy to alpha-gal; Other fatigue; Vitamin D deficiency; Allergic reaction, sequela; Food allergy 04/30/2025 External Device Data ST[facility] ABSTRACTION Provider, Abstract 04/24/2025 External Device Data ST[facility] ABSTRACTION Provider, Abstract 04/24/2025 External Device Data [facility] ABSTRACTION Provider, Abstract 04/17/2025 External Device Data ST[facility] ABSTRACTION Provider, Abstract 04/16/2025 External Device Data ST[facility] ABSTRACTION Provider, Abstract 03/25/[address] [phone] Monet Kidd FNP Allergy to alpha-gal 03/22/2025 Results Follow-Up [address] [phone] Monet Kidd FNP POC RAPID STREP A ANTIGEN, POC INFLUENZA A/B AND COVID-19 ANTIGENS, MONONUCLEOSIS SCREEN, Additional followed-up results: 6 03/21/[address] [phone] Phong Cui MD Results 03/21/[address] [phone] Phong Cui MD Patient Communication 03/20/2025 9:40 AM CDT Office Visit [address] [phone] Monet Kidd FNP Allergy to alpha-gal (Primary Dx); Food allergy; Dysautonomia (CMS/HCC); Myalgia; Other fatigue; Sore throat; Fever, unspecified fever cause; Viral upper respiratory tract infection from Last 3 Months Family History Medical [...] on file Legal Sex Female 11:25 AM ELECTRIC CUTTER OPERATOR Gender Identity Not on file Sexual Orientation Not on file Last Filed Vital Signs Vital Sign Reading Time Taken Comments Blood Pressure 102/70 05/03/2025 11:43 AM ELECTRIC CUTTER OPERATOR Pulse 86 05/03/2025 11:43 AM ELECTRIC CUTTER OPERATOR Temperature 36.7 C (98 F) 05/03/2025 11:43 AM ELECTRIC CUTTER OPERATOR Respiratory Rate 18 05/03/2025 11:43 AM ELECTRIC CUTTER OPERATOR Oxygen Saturation 100% 05/03/2025 11:43 AM ELECTRIC CUTTER OPERATOR Inhaled Oxygen Concentration - - Weight 51.5 kg (113 lb 9.6 oz) 05/03/2025 11:43 AM ELECTRIC CUTTER OPERATOR Height 160 cm (5' 3 ) 05/03/2025 11:43 AM ELECTRIC CUTTER OPERATOR Body Mass Index 20.12 05/03/2025 11:43 AM ELECTRIC CUTTER OPERATOR Plan of Treatment Upcoming Encounters Date Type Department Care Team (Late st Contact Info) Description 11/19/2025 2:10 PM CDT Office Visit [facility] [address] [place] [address] Gloria Cruz PA [address] [place] [address] 12/26/2025 2:30 PM CDT Office Visit [facility] [address] [place] [address] Myah Samuel [address] [place] [phone] 2026 3:00 PM CDT Office Visit [facility] [address] [place] [phone] Los Del Rio MD [address] [place] [address] Meseret Curry FNP [address] [place] [phone] Health Maintenance Due Date Last Done Comments HPV VACCINES (1 - 3-dose series) 02/12/2020 DTAP/TDAP/TD VACCINES (1 - Tdap) 02/12/2024 HEPATITIS B VACCINES (1 of 3 - 19+ 3-dose series) 02/12/2024 Preventative Visit-Managed Medicaid 02/12/2024 CHLAMYDIA SCREENING (ANNUAL) 11-24 YEARS 11/10/2024 11/11/2023, 08/02/2023 INFLUENZA VACCINE (#1) 2025 05/15/2024, 2022 Procedures Procedure Name Priority Date/Time Associated Diagnosis Comments COMPREHENSIVE METABOLIC PANEL Routine 05/22/2025 1:13 PM ELECTRIC CUTTER OPERATOR XR CERVICAL SPINE 2 OR 3 VIEWS Routine 05/03/2025 2:15 PM ELECTRIC CUTTER OPERATOR Chronic neck pain VITAMIN D 25 HYDROXY Routine 05/03/2025 12:05 PM ELECTRIC CUTTER OPERATOR Post-nasal drainage Chronic neck pain Allergy to alpha-gal Other fatigue Vitamin D deficiency VITAMIN B12 LEVEL Routine 05/03/2025 12: 05 PM ELECTRIC CUTTER OPERATOR Post-nasal drainage Allergy to alpha-gal Other fatigue IRON, TIBC, AND PERCENT SATURATION Routine 05/03/2025 12:05 PM ELECTRIC CUTTER OPERATOR Post-nasal drainage Allergy to alpha-gal Other fatigue [...] Recently Relevant to Health Maintenance Results * COMPREHENSIVE METABOLIC PANEL (05/22/2025 1:13 PM ELECTRIC CUTTER OPERATOR) Only the most recent of2 resultswithin the time period is included. Blood us Abstract Provider CHEMISTRY ORDERABLES Final Res ult * XR CERVICAL SPINE 2 OR 3 VIEWS (05/03/2025 2:15 PM ELECTRIC CUTTER OPERATOR) Anatomical Region Laterality Modality Spine Computed Radiogr aphy 05/03/2025 2:15 PM ELECTRIC CUTTER OPERATOR Impressions 05/05/2025 9:29 AM ELECTRIC CUTTER OPERATOR IMPRESSION: See below. Exam: XR CERVICAL SPINE [...] fracture, bone lesion, or significant degenerative changes. us Diamond Gomez CHIEF CREW SCHEDULER DIAGNOSTIC IMAGING ORDER NALINI Final Result * (ABNORMAL) IRON, TIBC, AND PERCENT SATURATION (05/03/2025 12:05 PM ELECTRIC CUTTER OPERATOR) Only the most recent of2 resultswithin the time period is included. Pathologist [facility] IRON 25(L) 40 - 190 mcg/dL [facility] TIBC 516(H) 250 - 450 mcg/dL (calc) [facility] IRON % SATURATION 5(L) 16 - 45 % (calc) [facility] Comment: Test Performed at: [employer] [address] [place] [address] Dilip Willson MD Blood 05/03/2025 12:0 5 PM ELECTRIC CUTTER OPERATOR 05/04/2025 3:34 AM ELECTRIC CUTTER OPERATOR [facility] CHEMISTRY ORDERABLES Fin al Result [facility] [phone] [employer] [address] * (ABNORMAL) VITAMIN D 25 HYDROXY (05/03/2025 12:05 PM ELECTRIC CUTTER OPERATOR) Only the most recent of2 resultswithin the time period is included. Pathologist [facility] VITAMIN D, 25 OH, TOTAL 20(L) 30 - 100 ng/mL [facility] Comment: Vitamin D Status 25-OH Vitamin D: Deficiency: <20 ng/mL Insufficiency: 20 - 29 ng/mL Optimal: > or = 30 ng/mL For 25-OH Vitamin D testing on patients on D2-supplementation and patients for whom quantitation of D2 and D3 fractions is required, the [facility](TM) 25-OH VIT D, (D2,D3), LC/MS/MS is recommended: order code 93690 (patients >2yrs). See Note 1 Note 1 For additional information, please refer to http://education.[employer]/faq/IEE016 (This link is being provided for informational/ educational purposes only.) Test Performed at: [facility] [place] [address] JoanneGermaine Willson MD Blood 05/03/2025 12:0 5 PM ELECTRIC CUTTER OPERATOR 05/04/2025 3:34 AM ELECTRIC CUTTER OPERATOR Diamond Thompsonpps CHIEF CREW SCHEDULER CHEMISTRY ORDERABLES Fin al Result Performing Organization Address City/[facility]/ZIP Co de Phone Number [facility] [phone] [employer] [address] * VITAMIN B12 LEVEL (05/03/2025 12:05 PM ELECTRIC CUTTER OPERATOR) VITAMIN B12 433 200 - 1100 pg/mL [facility] Comment: Test Performed at: [facility] [address] JoanneGermaine Willson MD Blood 05/03/2025 12:0 5 PM ELECTRIC CUTTER OPERATOR 05/04/2025 3:34 AM ELECTRIC CUTTER OPERATOR Diamond Lacey Gomez CHIEF CREW SCHEDULER CHEMISTRY ORDERABLES Fin al Result Performing Organization Address [facility] Co de Phone Number [facility] [phone] [employer] [address] * POC RAPID STREP A ANTIGEN (03/20/2025 10:09 AM CDT) Pathologist [facility] RAPID STREP POC Negative Negative, Indeterminate [facility] INTERNAL KIT QC POC Pass Pass [facility] VIEW KIT LOT NUMBER POC [id number] [facility] KIT EXP DATE POC 10/20/2025 [facility] READ METHOD POC Visual [facility] Upper Respiratory SPECIMEN FROM THROAT / Unknown 03/20/2025 10:09 AM CDT Monet Kidd CHIEF CREW SCHEDULER POINT OF CARE TESTING Fi nal Result [facility] CLIA# [id number] [address] [facility] [address] [place] [address] * POC INFLUENZA A/B AND COVID-19 ANTIGENS (03/20/2025 10:08 AM CDT) INFLUENZA A AG POC Not Detected Not Detected [facility] INFLUENZA B AG POC Not Detected Not Detected [facility] COVID-19 ANTIGEN POC Presumptively Negative Presumptively Negative [facility] INTERNAL KIT QC POC Pass Pass [facility] KIT LOT NUMBER POC [id number] [facility] KIT EXP DATE POC 10/09/2025 [facility] Upper Respiratory 03/20/2025 10:08 AM CDT Monet Kidd CHIEF CREW SCHEDULER POINT OF CARE TESTING Fi nal Result Performing Organization Address City/State/[facility] Co de Phone Number [facility] CLIA# [id number] [address] [facility] [address] [facility] [address] [place] [address] * ALLERGEN COCONUT, IGE (03/20/2025 9:53 AM CDT) ALLERGEN COCONUT <0.10 kU/L [facility] ALLERGEN ALLERGEN COCONUT CLASS [...] analytical performance characteristics have been determined by [employer]. It has not been cleared or approved by the U.S. Food and Drug Administration. This assay has been validated pursuant to the CLIA regulations and is used for clinical purposes. Test Performed at: [employer] [address] [place] [address] Dilip Willson MD Blood 03/20/2025 9:53 AM CDT 03/21/2025 6:40 AM CDT Monet Kidd [facility] CHEMISTRY ORDERABLES Fin al Result [facility] [phone] [employer] [address] [place] [address] * (ABNORMAL) CBC WITH DIFFERENTIAL (03/20/2025 9:53 [...] [facility] Comment: Test Performed at: [facility] [address] [place] [address] [place] [address] Dilip Willson MD Blood 03/20/2025 9:53 AM CDT 03/21/2025 6:40 AM CDT Monet Kidd [facility] HEMATOLOGY ORDERABLES Fi nal Result [facility] [phone] [facility] [address] * (ABNORMAL) MONONUCLEOSIS SCREEN (03/20/2025 9:53 AM CDT) [facility] Signature MONONUCLEOSIS SCREEN POSITIVE( A) NEGATIVE [facility] Comment: Test Performed at: [facility] [place] [address] JoanneGermaine Willson MD Blood 03/20/2025 9:53 AM CDT 03/21/2025 6:40 AM CDT Monet Kidd [facility] HEMATOLOGY ORDERABLES Fi nal Result [facility] [phone] [facility] [address] * MAGNESIUM LEVEL (03/20/2025 9:53 AM CDT) Pathologist [facility] MAGNESIUM 2.0 1.5 - 2.5 mg/dL [facility] Comment: Test Performed at: [facility] [address] [facility] [place] [address] Dilip Willson MD Blood 03/20/2025 9:53 AM CDT 03/21/2025 6:40 AM CDT Monet Kidd CHIEF CREW SCHEDULER CHEMISTRY ORDERABLES Fin al Result [facility] [phone] [facility] [place] [address] * (ABNORMAL) VAGINOSIS/VAGINITIS PANEL PLUS (11/11/2023 1:15 PM CDT) [facility] BACTERIAL VAGINOSIS POSITIVE(A) NEGATIVE [facility] [place] ANTOINETTE SPECIES DETECTED(A) NOT DETECTED [facility] [place] ANTOINETTE GLABRATA NOT DETECTED NOT DETECTED [facility] [place] Comment: Antoinette species C. albicans, C. tropicalis, C. parapsilosis, and/or C. dubliniensis can be detected, but not differentiated, in the Antoinette spp. result. TRICHOMONAS VAGINALIS (TV), TMA NOT DETECTED NOT DETECTED [facility] [place] C TRAC RNA NOT DETECTED NOT DETECTED [facility] [place] N.GONORRHOEAE RNA, TMA NOT DETECTED NOT DETECTED [facility] [place] Comment: For additional information, please refer to https://education.[employer]faq/TKE747 (This link is being provided for information/ educational purposes only.) Test Performed at: [facility] [address] [place] [address] [place] [address] Dliip Willson MD Genital SPECIMEN FROM VAGINA / Unknown 11/11/2023 1:15 PM CDT 11/12/2023 3:47 AM CDT Monet Cunninghamtt CHIEF CREW SCHEDULER MICROBIOLOGY - GENERAL O RDERABLES Final Result [facility] [phone] [facility] [address] [address] Javier, FELIZ [address] from Last 3 Months or Most Recently Relevant to Health Maintenance Insurance [facility] MEDICAID [facility] MEDICAID Care Teams Human Resources Benefits Administrator Relationship Specialty Start Date End Date Phong Cui MD [address] [facility] [address] [place] [address] PCP - General Family Practice 06/08/17
--- OUTSIDE RECORDS SUMMARY | 2025-06-17 12:07 | XMS_ITS | Encounter Summary ---
Author Organization [email or web address] Address 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
[2025-06-17 12:09] VITALS: BP 118/86; PULSE 88; RESP 16; TEMP 36.8; O2SAT 97
--- NOTE | 2025-06-17 12:29 | ED_ITS ---
HPI - Abdominal Pain 2 General: Chief Complaint: Abdominal Pain Stated Complaint: rib/shoulder pain Time Seen by Provider: 06/17/25 12:16 Source: patient Mode of arrival: ambulatory Limitations: no limitations History of Present Illness: Patient is a 20-year-old female presents to ED today with complaint of abdominal pain. She states Tuesday (3 days ago) she began noticing intermittent mild left upper quadrant abdominal pain. She feels like pain has since moved over to her right upper quadrant. She is still reporting pain has intermittent but seemingly worse in intensity. She does feel like pain worsens with eating- especially certain foods and larger amounts reporting if I eat something small and light I can usually get by without hurting . She does not complain of any flank pain. She has felt a little nauseous but no episodes of emesis. She is reporting normal bowel movements. She does have a history of ovarian cysts as well as interstitial cystitis but states usually these present with pain lower in her pelvis which does not seem to be the case today. MD elicited complaint: abdominal pain Pertinent past history: none Onset (ago): day(s) Pain Consistency: intermittent Location: LUQ and RUQ Severity: mild Quality: aching Radiation: other (R shoulder) Migration to: no migration Exacerbating factors: eating Relieving factors: nothing Associated Symptoms: Reports bloating, fever(s) (subjective) and nausea; Denies chills, constipation, diarrhea, dysuria, hematochezia, hematemesis, melena and vomiting Related Data Home Medications ?Medication ?Instructions ?Recorded ?Confirmed triamcinolone acetonide 0.5 % 1 applic topical DAILY 1 05/06/25 topical cream cetirizine 10 mg tablet (Zyrtec) 10 mg PO DAILY 05/06/25 hydroxyzine HCl 10 mg tablet 10 mg PO DAILY 07/20/24 1 07/06/24 epinephrine 0.3 mg/0.3 mL See Rx Instructions .Route . COMPLEX 11/15/24 05/06/25 injection, auto-injector famotidine 20 mg tablet 20 mg PO BID 11/15/24 oxybutynin chloride 5 mg 10 mg PO DAILY 01/02/2504/27 tablet,extended release 24 hr azelastine 137 mcg (0.1 %) nasal 2 spray intranasal BI D 04/02/25 05/06/25 spray montelukast 10 mg tablet 10 mg PO DAILY 04/02/2504/27 Previous Rx's ?Medication ?Instructions ?Recorded diazepam 5 mg tablet (Valium) 5 mg PO DAILY PRN severe anxiety 07/20/24 #30 tabs norelgestromin 150 mcg-e.estradiol 1 patch transdermal Q7D #12 ea 04/25/25 35 mcg/24 hr weekly transderm patch (Xulane) Allergies Allergy/AdvReac Type Severity Reaction Status Date / Time Milk Containing Products Allergy Severe ALGY-Anaphy Verified 05/06/25 10:28 (Dairy) laxis shellfish derived Allergy Unknown Unknown Verified 05/06/25 10:28 Alpha-Gal Allergy ALGY-Difficulty Verified 05/06/25 10:28 ([id number],3-Gala Breathing azithromycin (From Zithromax) AdvReac Mild hives Verified 05/06/25 10:28 Review of Systems 2 Const: Reports: fever(s) (subjective); Denies: chills, body aches, fatigue or malaise ENMT: Denies: throat pain or odynophagia Card: Denies: chest pain Resp: Denies: dyspnea GI: Reports: abdominal pain, nausea and bloating; Denies: vomiting, hematemesis, diarrhea, constipation, hematochezia or melena : Reports: other ( chronic bladder symptoms due to interstitial cystitis ); Denies: flank pain, difficulty voiding, dysuria, urinary frequency, urinary urgency or urinary hesitancy Musc: Denies: neck pain, back pain, extremity pain, extremity swelling, joint pain or joint swelling Skin/Breast: Denies: rash Neuro: Denies: headache(s), numbness in extremities, weakness in extremities, sensory changes or dizziness PFSH ED 2 PFSH: Medical History Dysautonomia Suspected POTS but still undergoing testing Major depressive disorder, recurrent, mild Panic disorder Interstitial cystitis (~02/2024) [facility] in [place]-- [place] PTSD (post-traumatic stress disorder) Psychiatric care No pertinent past medical history neghx: htn,dm,thryoid,dvt/pe PCP: Stevie Kidd Mild asthma Depression with anxiety MRSA (methicillin resistant staph aureus) culture positive Papular eczema Surgical History H/O cystoscopy Family History Grandfather Stroke Maternal Denies family history of Colon cancer Ovarian cancer Diabetes CAD (coronary artery disease) Heart disease Chronic kidney disease (CKD) Breast cancer Family history of thyroid problem Lung disease Cancer Hypertension Uterine cancer Hyperchloremia Social History Smoking and tobacco/nicotine status: never used tobacco/nicotine Physical Exam 2 Const: COMMON NORMALS: no acute distress, average body habitus, patient oriented x3, no limitations, healthy appearing, alert and well nourished G ENERAL APPEARANCE: cooperative ORIENTATION/CONSCIOUSNESS: Yes awake, Yes oriented to person, Yes oriented to place and Yes oriented to time Neck/C-Spine: COMMON NORMALS: full ROM, no lymphadenopathy and no meningeal signs Chest: COMMONS NORMALS: normal inspection of the chest and normal palpation of entire chest wall Resp: COMMON NORMALS: normal respiratory effort and clear to auscultation bilaterally AUSCULTATION: clear to auscultation bilaterally Cardio: COMMON NORMALS: regular rate and regular rhythm RATE: regular rate RHYTHM: regular rhythm GI: COMMON NORMALS: Normal to inspection, nondistended, normoactive bowel sounds present, Soft to palpation, No hepatosplenomegaly present and no masses INSPECTION: Yes normal to inspection AUSCULTATION: Yes normoactive bowel sounds PALPATION: Yes Soft to palpation, Yes Tenderness to palpation present (GI) (mild LUQ, epigastric; negative Mortensen's) Details: other (suprapubic discomfort but states normal with her interstitial cystitis), No Guarding due to palpation present (GI), No Rigid due to palpation and Yes No hepatosplenomegaly present : COMMON NORMALS: Yes no CVA tenderness BLADDER/KIDNEY EXAM: Yes no CVA tenderness Back/Pelvis: COMMON NORMALS: no CVA tenderness and thoracic and lumbar spine normal to inspection Extremity: GENERAL: Yes normal exam except as noted Neuro: NORA COMA SCALE: document GCS findings Nora coma scale eye opening: Spontaneous [place] coma scale verbal response: Orientated Nora coma scale motor response: Obey commands Nora coma scale total score: 15 COMMON NORMALS: patient oriented x3, moves all extremities, no focal motor deficits, no sensory deficits noted and gait normal SENSORIUM/ORIENTATION: Yes alert, Yes oriented to person, Yes oriented to place and Yes oriented to time MENINGEAL SIGNS: Yes no meningeal signs Skin: COMMON NORMALS: no rashes or lesions noted GENERAL SKIN EXAM: no rashes or lesions noted Course 2 Vital Signs: Vital signs: Vital Signs Temperature 98.3 F 06/17/25 12:09 Pulse Rate 81 06/17/25 13:55 Respiratory Rate 15 06/17/25 12:34 Blood Pressure 107/73 06/17/25 13:55 Pulse Oximetry 99 06/17/25 13:55 Oxygen Delivery Me thod Room Air 06/17/25 13:30 MDM - Abdominal Pain Medical Decision Making Patient clinically appears no acute distress. Vital signs are stable. Blood work overall is unremarkable. Mild anemia but hemoglobin is stable. Chemistry overall is unremarkable. UA is clear. negative. Differentials could include pancreatitis, acute cholecystitis, choledocholithiasis, gastritis/GERD/PUD, duodenal ulcer, constipation, among others. CT imaging showing diffuse marked constipation throughout her entire colon. Remainder of CT scan is unremarkable. Patient will be allowed discharge. We discussed several ypoi-vxa-pxchoov medications to help relieve constipation. Return to ED precautions discussed. Differential Diagnosis Likely abdominal pain, acute appendicitis, calculus of kidney, constipation, diverticulitis, endometriosis, gastroenteritis, pancreatitis and small bowel obstruction Medical Records I reviewed the patient's medical records. Lab Data I reviewed the patient's lab results. 06/17/25 12:20 06/17/25 12:20 Labs/Radiology: Radiology Impressions Abdomen/Pelvis CT 06/17/25 12:41 IMPRESSION: 1. Normal appendix. 2. Diffuse marked constipation throughout the entire colon. 3. No free air or free fluid. 4. No renal obstruction. Laboratory Results WBC 7.17 10^3/uL (4.5-13.0) 06/17/25 12:20 RBC 4.12 10^6/uL (3.85-5.65) 06/17/25 12:20 Hgb 11.10 g/dL (12.4-14.8) L 06/17/25 12:20 Hct 36.0 % (36-47) 06/17/25 12:20 MCV 87.4 fl (85-98) 06/17/25 12:20 MCH 26.9 pg (27-33) L 06/17/25 12:20 MCHC 30.8 g/dL (30-55) 06/17/25 12:20 RDW 12.9 % (12.1-15.1) 06/17/25 12:20 Plt Count 365 10^3/cmm (157-399) 06/17/25 12:20 MPV 11.3 fL (7.4-10.4) H 06/17/25 12:20 Neut % (Auto) 58.5 % 06/17/25 12:20 Lymph % (Auto) 26.2 % 06/17/25 12:20 [place] % (Auto) 7.1 % 06/17/25 12:20 Eos % (Auto) 6.7 % 06/17/25 12:20 Baso % (Auto) 1.1 % 06/17/25 12:20 Neut # (Auto) 4.19 10^3/uL (1.8-8.0) 06/17/25 12:20 Lymph # (Auto) 1.9 10^3/uL (1.5-6.5) 06/17/25 12:20 [place] # (Auto) 0.5 10^3/uL (0.2-0.9) 06/17/25 12:20 Eos # (Auto) 0.5 10^3/uL (0.0-0.8) 06/17/25 12:20 Baso # (Auto) 0.1 10^3/uL (0.0-0.1) 06/17/25 12:20 Nucleated RBC % (auto) 0 % 06/17/25 12:20 Nucleated RBCs # 0.0 /100WBC 06/17/25 12:20 Sodium 135 mmol/L (136-145) L 06/17/25 12:20 Potassium 4.0 mmol/L (3.5-5.1) 06/17/25 12:20 Chloride 101 mmol/L (98-107) 06/17/25 12:20 Carbon Dioxide 24 mmol/L (22-29) 06/17/25 12:20 Anion Gap 14.0 (5-19) 06/17/25 12:20 BUN 7 mg/dL (6-20) 06/17/25 12:20 Creatinine 0.6 mg/dL (0.5-0.9) 06/17/25 12:20 GFR Calculation 127.5 mL/min (90-130) 06/17/25 12:20 Glucose 78 mg/dL (65-115) 06/17/25 12:20 Calculated Osmolality 277 mOsm/kg (285-295) L 06/17/25 12:20 Calcium 9.4 mg/dL (8.5-10.5) 06/17/25 12:20 Total Bilirubin 0.3 mg/dL (0.15-1.2) 06/17/25 12:20 AST 28 U/L (0-32) 06/17/25 12:20 ALT 16 U/L (0-33) 06/17/25 12:20 Alkaline Phosphatase 67 U/L (35-105) 06/17/25 12:20 Total Protein 7.7 g/dL (6.6-8.7) 06/17/25 12:20 Albumin 4.3 g/dL (3.5-5.2) 06/17/25 12:20 Globulin 3.4 g/dL (1.3-4.6) 06/17/25 12: Lipase 39 U/L (13-60) 06/17/25 12:20 HCG, Qual Negative (Negative) 06/17/25 12: Urine Color Yellow (Yellow) 06/17/25 12:27 Urine Appearance Clear (CLEAR) 06/17/25 12: Urine pH 7.5 (5-7) 06/17/25 12: Ur Specific [place] 1.006 (1.005-1.030) 06/17/25 12:27 Urine Protein Negative (Negative) 06/17/25 12: Urine Glucose (UA) Negative (Normal) 06/17/25 12: Urine Ketones Negative (Negative) 06/17/25 12: Urine Blood Negative (Negative) 06/17/25 12: Urine Nitrate Negative (Negative) 06/17/25 12: Urine Bilirubin Negative (Negative) 06/17/25 12: Urine Urobilinogen 0.2 mg/dL (Negative) 06/17/25 12: Ur Leukocyte Esterase 1+ (Negative) A 06/17/25 12:27 Urine RBC 0-2 /hpf (0-2) 06/17/25 12:27 Urine WBC 0-5 /hpf (0-5) 06/17/25 12:27 Ur Squamous Epith Cells 0-5 /hpf (0-5) 06/17/25 12:27 Amorphous Sediment Not Reportable 06/17/25 12:27 Urine Bacteria None seen /hpf (NONE) 06/17/25 12:27 Hyaline Casts 0-4 /lpf H 06/17/25 12:27 All radiology interpretation(s) finalized by discharge Discharge Plan Discharge Patient Disposition: Home Clinical Impression: Constipation Qualifiers: Constipation type: unspecified constipation type Qualified Code(s): K59.00 - Constipation, unspecified Abdominal pain Qualifiers: Abdominal location: unspecified location Qualified Code(s): R10.9 - Unspecified abdominal pain Condition: Stable Prescriptions: No Action triamcinolone acetonide 0.5 % cream 1 applic topical DAILY montelukast 10 mg tablet 10 mg PO DAILY azelastine 137 mcg (0.1 %) spray,non-aerosol 2 spray intranasal BID Rx Instructions: administer into each nostril hydroxyzine HCl 10 mg tablet 10 mg PO DAILY cetirizine [Zyrtec] 10 mg tablet 10 mg PO DAILY diazepam [Valium] 5 mg tablet 5 mg PO DAILY PRN (Reason: severe anxiety) Qty: 30 0RF norelgestromin-ethin.estradiol [Xulane] 150-35 mcg/24 hr patch weekly 1 patch transdermal Q7D Qty: 12 3RF Rx Instructions: apply once weekly for 4 weeks then off for 7 days famotidine 20 mg tablet 20 mg PO BID epinephrine 0.3 mg/0.3 mL auto-injector See Rx Instructions .ROUTE .COMPLEX Rx Instructions: INJECT 0.3ML BY INTRAMUSCULAR INJECTION 1 TIME DAILY NEEDED FOR ANAPHYLAXIS. oxybutynin chloride 5 mg tablet extended release 24hr 10 mg PO DAILY Discharge Orders: Discharge ED (Routine); Ordered 06/17/25 Ordered By: Darlene Owens Referrals: Monet Kidd [Primary Care Provider, Family Practice] Patient Instructions: Constipation (DC), Abdominal Pain (ED), Patient Portal & [facility] Instructions Activity Restrictions/Additional Instructions: As we discussed, your blood work here was unremarkable. UA was clear. CT scan showing a significant amount of constipation. Remainder of abdominal/CT scan appeared normal. We discussed dyad-fuj-djepzbe medications such as MiraLAX, Colace, Senokot to help with constipation. Recommend follow-up with primary care. He may return to the emergency department at anytime for severe worsening abdominal pain, repetitive episodes of vomiting, fevers, generally feeling worse or unwell, or any other concerns you may have. I hope you begin to feel better soon. Stand Alone Forms: Work/School Release Print Language: Sinhala Coding Level of Care Code ED Casualty Insurance Claim Adjuster for Susi Banuelos
[2025-06-17 12:34] VITALS: BP 100/73; PULSE 86; RESP 15; O2SAT 96
[2025-06-17 12:36] LABS: Hematocrit 36.0 % (36-47); Hemoglobin 11.10 g/dL (12.4-14.8); Mean Corpuscular HGB Conc 30.8 g/dL (30-55); Mean Corpuscular Hemoglobin 26.9 pg (27-33); Mean Corpuscular Volume 87.4 fl (85-98); Nucleated Red Blood Cells % 0 %; Platelet Count 365 10^3/cmm (157-399); Red Blood Count 4.12 10^6/uL (3.85-5.65); White Blood Count 7.17 10^3/uL (4.5-13.0)
[2025-06-17 12:39] LABS: Glucose Urine UA Negative (Normal); Nitrate Urine Negative (Negative); Specific Gravity, Urine 1.006 (1.005-1.030)
[2025-06-17 12:41] LABS: Add Urine Microscopic? YES
--- NOTE | 2025-06-17 12:41 | CT_ITS ---
WS: [id number] CT ABDOMEN AND PELVIS WITH CONTRAST HISTORY: abdominal pain TECHNIQUE: Imaging performed of the abdomen and pelvis with IV contrast. Single phase imaging of the abdomen. Coronal and sagittal reformats are submitted. All CT scans at [facility] use at least one of these dose optimization techniques: automated exposure control; mA and/or kV adjustment per patient size (includes targeted exams where dose is matched to clinical indication); or iterative reconstruction. IV CONTRAST: Omnipaque 350; 100 mL IV. Oral contrast: No DLP: 319.68 mGy.cm COMPARISON: 08/05/2023 Lower thorax: Lung bases are clear. Heart is normal size. No hiatal hernia. Liver/biliary system: Normal size with no intrahepatic dilatation. Gallbladder: Normal. No gallstones or wall thickening. No pericholecystic fluid. Pancreas: Normal size pancreas and pancreatic duct. No adjacent inflammation. Spleen: Normal size spleen. No mass or infarct. Adrenal glands: Normal. Right kidney: Normal. Left kidney: Normal. Aorta: Normal. Lymphadenopathy: None. Free fluid: None. GI tract: Stomach is nondistended. No small bowel obstruction. Marked diffuse constipation throughout the entire colon. The large amount of feces in the cecum and the cecum is deep within the RIGHT pelvis. The appendix is identified and normal. Abdominal wall: Unremarkable abdominal wall. No hernia. Pelvis: No free fluid or adenopathy within the pelvis. Normal uterus and ovaries. No free fluid. Normal bladder. Bones: Unremarkable. CT/CT abdomen pelvis w con* [id number] IMPRESSION: 1. Normal appendix. 2. Diffuse marked constipation throughout the entire colon. 3. No free air or free fluid. 4. No renal obstruction.
[2025-06-17 12:51] LABS: HCG, Serum Qual Negative (Negative)
[2025-06-17 12:57] LABS: Alanine Aminotransferase 16 U/L (0-33); Albumin Level 4.3 g/dL (3.5-5.2); Alkaline Phosphatase 67 U/L (35-105); Anion Gap 14.0 (5-19); Aspartate Amino Transferase 28 U/L (0-32); Blood Urea Nitrogen 7 mg/dL (6-20); Calcium 9.4 mg/dL (8.5-10.5); Carbon Dioxide 24 mmol/L (22-29); Chloride 101 mmol/L (98-107); Globulin 3.4 g/dL (1.3-4.6); Glucose 78 mg/dL (65-115); Lipase 39 U/L (13-60); Osmolality Calculated 277 mOsm/kg (285-295); Potassium 4.0 mmol/L (3.5-5.1); Sodium 135 mmol/L (136-145); Total Protein 7.7 g/dL (6.6-8.7)
[2025-06-17] MEDS: iohexol 350 mg/mL 500 mL Btl (per mL) IV (13:06)
[2025-06-17 13:30] VITALS: BP 107/73; PULSE 79; O2SAT 99
[2025-06-17 13:55] VITALS: BP 107/73; PULSE 81; O2SAT 99
== END 2025-06-17 13:56 | disposition home or self-care (01) ==
PROVIDERS: Emergency Provider Physician Assistant; PCP Registered Nurse
DX: K59.00 Constipation, unspecified (principal); R10.9 Unspecified abdominal pain
CPT/HCPCS: 74177; 80053; 81001; 83690; 84703; 85025; 99285